=== PATIENT | male | born 2000 ===

== ENCOUNTER 2021-09-01 15:15 | Emergency (ER) | payer SELFPAY ==
[~2021-09-01] VITALS: Ht 180.3 cm; Wt 89.0 kg
[2021-09-01 15:16] VITALS: BP 137/67
--- NOTE | 2021-09-01 16:10 | REP ---
INDICATION: pain COMPARISON: None. TECHNIQUE: Internal rotation, external rotation, and Y view. FINDINGS: No acute fracture or dislocation. The acromioclavicular and glenohumeral joints are intact. No periarticular calcifications or degenerative changes are appreciated. Sub acromial space is normal. Surrounding soft tissues are unremarkable. IMPRESSION: Normal left shoulder radiographs. <Electronically signed by Edinson Cabrera > 09/01/21 [id number]
--- NOTE | 2021-09-01 16:11 | REP ---
INDICATION: pain COMPARISON: None. TECHNIQUE: Two views of the left clavicle FINDINGS: No acute fracture or dislocation. Sternoclavicular and acromioclavicular joints appear intact and normal. Surrounding soft tissues are unremarkable. IMPRESSION: No acute fracture or dislocation. <Electronically signed by Edinson Cabrera > 09/01/21 [id number]
== END 2021-09-01 18:06 | disposition left against medical advice (07) ==
LOC: M ED 15:15
DX: Z53.29 Procedure and treatment not carried out because of patient's decision for other reasons (principal)